=== PATIENT | male | born 1995 | race Caucasian/White ===

== ENCOUNTER 2017-11-09 18:33 | Emergency (ER) | payer OTHER ==
[~2017-11-09] VITALS: Ht 167.6 cm; Wt 59.0 kg
[2017-11-09 18:38] VITALS: BP 114/65
--- NOTE | 2017-11-09 18:40 | NUR ---
PER DR ROBERTS PT AMBULATES BACK TO [facility]
--- NOTE | 2017-11-09 19:22 | NUR ---
PATIENT PRESENTS TO ED WITH C/O HEAD ACHE 2/10 SINCE YESTERDAY WITH DIZZINESS WORSE WITH SNEEZING/COUGHING. PT DENIES N/V/D; SKIN IS PINK/WARM/DRY; AAOX4 WITH EVEN AND STEADY GAIT; LUNGS CLEAR BL; HR EVEN AND REGULAR; PT DENIES ANY FEVER, CP, SOB, OR AT THIS TIME; PATIENT STATES PAIN OF 5/10 AT THIS TIME; VSS; PATIENT POSITIONED FOR COMFORT; HOB ELEVATED; BEDRAILS UP X2; BED DOWN. ER MD MADE AWARE OF PT STATUS.
[2017-11-09] MEDS ORDERED: ACETAMINOPHEN EXTRA STRENGTH 500 MG TAB PO ONE (20:10)
[2017-11-09] MEDS ORDERED: KETOROLAC 30 MG/ML VIAL IM ONE (20:10)
--- NOTE | 2017-11-09 20:56 | NUR ---
Patient discharged with v/s stable. Written and verbal after care instructions given and explained. Patient alert, oriented and verbalized understanding of instructions. Ambulatory with steady gait. All questions addressed prior to discharge. ID band removed. Patient advised to follow up with PMD. Rx of NAPROXEN 500MG given. Patient educated on indication of medication including possible reaction and side effects. Opportunity to ask questions provided and answered.
[2017-11-09 20:57] VITALS: BP 122/71
== END 2017-11-09 20:57 | disposition home or self-care (01) ==
LOC: MED 18:33
DX: G44.209 Tension-type headache, unspecified, not intractable (principal); J06.9 Acute upper respiratory infection, unspecified; R50.9 Fever, unspecified
CPT/HCPCS: 96372; 99283; J1885